=== PATIENT | female | born 2000 | race Caucasian/White ===

== ENCOUNTER 2018-12-21 14:57 | Emergency (ER) | payer MEDICAID ==
[2018-12-21] MEDS: BACITRACIN 0.9 GM OINT TOP (15:14)
[2018-12-21] MEDS: IBUPROFEN 600 MG TAB PO (15:16)
== END 2018-12-21 16:04 | disposition home or self-care (01) ==
LOC: FTE 14:57
DX: S61.012A Laceration without foreign body of left thumb without damage to nail, initial encounter (principal); W26.0XXA Contact with knife, initial encounter; Y92.89 Other specified places as the place of occurrence of the external cause
CPT/HCPCS: 12002; 81025; 99282-25

== ENCOUNTER 2018-12-28 10:36 | Emergency (ER) | payer MEDICAID | END 2018-12-28 10:57 | disposition home or self-care (01) | LOC: FTE 10:36 | DX: Z48.02 Encounter for removal of sutures (principal) | CPT/HCPCS: 99281; Z7502 ==